=== PATIENT | female | born 1970 | race Caucasian/White ===

== ENCOUNTER 2017-05-14 17:41 | Observation (INO) | payer BC ==
[~2017-05-14] VITALS: Ht 162.6 cm; Wt 110.7 kg
[2017-05-14 19:39] LABS: MCH 28.5 PG (29.0-34.0); MCHC 34.2 G/DL (30.0-36.0); MCV 83.3 FL (83-99); MEAN PLAT.VOLUME 9.5 uM^3 (9.5-12.4); PLATELET COUNT 207 K/uL (156-360); RBC DIS.WIDTH-CV 12.3 % (11.8-14.6); RBC DIS.WIDTH-SD 37.9 % (39-53); RED BLOOD COUNT 5.16 M/uL (3.80-5.20); WHITE BLOOD COUNT 10.1 K/uL (4.1-10.2)
[2017-05-14 19:48] LABS: CHLORIDE 102 mEq/L (99-109); POTASSIUM 3.5 mEq/L (3.7-5.4); SODIUM 138 mEq/L (136-147)
[2017-05-14 19:51] LABS: GLUCOSE 124 mg/dL (70-99)
[2017-05-14 19:52] LABS: ANION GAP 11 MEQ/L (2-14); TOTAL BILIRUBIN 0.3 mg/dL (0.0-1.0)
[2017-05-14 19:54] LABS: ALKALINE PHOSPHATASE 66 IU/L (3-129); GFR ESTIMATE (CALCULATED) > 59 mL/min/
[2017-05-14 19:55] LABS: UREA NITROGEN (BUN) 15 mg/dL (9-23)
[2017-05-14 19:56] LABS: DIRECT BILIRUBIN 0.1 mg/dL (0.0-0.3)
[2017-05-14 19:58] LABS: LIPASE 18 U/L (1.0-51.0)
[2017-05-14 20:01] LABS: TROP-I INTERPRETATION NEGATIVE; TROPONIN-I < 0.01 ng/mL (0.0-0.30)
[2017-05-14] MEDS ORDERED: ZESTORETIC 20-1 EAC1 PO (21:00)
[2017-05-14] MEDS ORDERED: ZOCOR20 MG PO (21:00)
[2017-05-14] MEDS ORDERED: PRILOSEC20 MG PO (21:01)
[2017-05-14] MEDS ORDERED: ERGOCALCIF50000 UNIT PO (21:02)
[2017-05-14] MEDS ORDERED: LO-DOSE ASPIRIN81 M2 PO (21:03)
[2017-05-14] MEDS ORDERED: TUMS500 MG PO (21:03)
[2017-05-14] MEDS ORDERED: DAILY MULTIVIT1 EAC6 PO (21:04)
[2017-05-14] MEDS ORDERED: B-1100 MG PO (21:04)
[2017-05-14 22:20] LABS: D-DIMER ELISA < 150.00 ng/mLDDU (<230)
[2017-05-14 22:53] VITALS: BP 141/75
[2017-05-15 01:49] LABS: TROP-I INTERPRETATION NEGATIVE; TROPONIN-I < 0.01 ng/mL (0.0-0.30)
[2017-05-15 03:45] VITALS: BP 126/60
[2017-05-15 07:29] LABS: HEMATOCRIT 42.9 % (36.0-46.0); MCH 29.3 PG (29.0-34.0); MCHC 34.3 G/DL (30.0-36.0); MCV 85.6 FL (83-99); MEAN PLAT.VOLUME 9.7 uM^3 (9.5-12.4); PLATELET COUNT 198 K/uL (156-360); RBC DIS.WIDTH-CV 12.8 % (11.8-14.6); RBC DIS.WIDTH-SD 39.7 % (39-53); RED BLOOD COUNT 5.01 M/uL (3.80-5.20); WHITE BLOOD COUNT 8.7 K/uL (4.1-10.2)
[2017-05-15 07:52] LABS: ANION GAP 10 MEQ/L (2-14); CHLORIDE 101 MEQ/L (99-109); GFR ESTIMATE (CALCULATED) > 59 mL/min/; GLUCOSE 107 mg/dL (70-99); SAMPLE HEMOLYSIS CHECK 0; SAMPLE ICTERIC CHECK 0; SAMPLE LIPEMIA CHECK 0; SODIUM 138 MEQ/L (136-147); UREA NITROGEN (BUN) 19 mg/dL (9-23)
[2017-05-15 07:58] LABS: TROP-I INTERPRETATION NEGATIVE; TROPONIN-I < 0.01 ng/mL (0.0-0.30)
[2017-05-15 09:27] VITALS: BP 130/73
[2017-05-15 11:55] VITALS: BP 116/76
[2017-05-15] MEDS ORDERED: NITROSTAT0.4 MG SL (12:04)
== END 2017-05-15 16:28 | disposition home or self-care (01) ==
LOC: EME 17:41 → EDOF 21:22 → ENRESERV 21:25 → 5WEST 22:28
PROVIDERS: Emergency Medicine; Hospitalist
DX: R07.89 Other chest pain (principal); R00.2 Palpitations; I10 Essential (primary) hypertension; E78.5 Hyperlipidemia, unspecified; Z79.82 Long term (current) use of aspirin; I44.1 Atrioventricular block, second degree; Z87.891 Personal history of nicotine dependence; Z82.49 Family history of ischemic heart disease and other diseases of the circulatory system; Z83.3 Family history of diabetes mellitus; Z80.41 Family history of malignant neoplasm of ovary; Z80.8 Family history of malignant neoplasm of other organs or systems; Z83.79 Family history of other diseases of the digestive system
CPT/HCPCS: 71020; 80048; 80076; 83690; 83880; 84484; 85027; 85379; 93005; 99281; 99285; G0378